=== PATIENT | male | born 1970 | race Caucasian/White ===

== ENCOUNTER 2019-04-21 17:42 | Emergency (ER) | payer OTHER ==
[~2019-04-21] VITALS: Ht 190.5 cm; Wt 133.4 kg
[2019-04-21] MEDS ORDERED: KETOROLAC 15 MG/ML VIAL. IV ONE (18:30)
[2019-04-21] MEDS ORDERED: FAMOTIDINE 20 MG/2 ML VIAL IVP ONE (18:30)
[2019-04-21] MEDS ORDERED: ASPIRIN 325 MG TABLET PO ONE (18:30)
[2019-04-21] MEDS ORDERED: IV NORMAL SALINE 1000ML BAG 1,000 ML IV ONE (18:30)
[2019-04-21 18:46] LABS: BASO % 0 % (0-3); EOS # 0.2 x10^3/uL (0.0-0.7); EOS % 2 % (0-3); HEMATOCRIT 45.5 % (39.0-53.0); LYMPH # 2.6 x10^3/uL (1.0-4.8); LYMPH % 31 % (24-48); MEAN CORPUSCULAR HEMOGLOBIN 32 pg (25-35); MEAN CORPUSCULAR HGB CONC 35 g/dL (31-37); MEAN CORPUSCULAR VOLUME 90 fL (79-100); MONO # 0.6 x10^3/uL (0.0-1.1); MONO % 7 % (0-9); NEUT % 60 % (31-73); PLATELET COUNT 226 x10^3/uL (140-400); RED BLOOD COUNT 5.04 x10^6/uL (4.30-5.70); RED CELL DISTRIBUTION WIDTH 12.6 % (11.5-14.5); WHITE BLOOD COUNT 8.4 x10^3/uL (4.0-11.0)
[2019-04-21 19:03] LABS: PARTIAL THROMBOPLASTIN TIME 27 SEC (24-38)
[2019-04-21 19:06] LABS: D-DIMER < 0.27 ug/mlFEU (0.00-0.50)
[2019-04-21 19:25] LABS: BILIRUBIN,URINE NEGATIVE (NEG); CLARITY,URINE CLEAR; COLOR,URINE YELLOW; NITRITE,URINE NEGATIVE (NEG); PH,URINE 7.5; PROTEIN,URINE NEGATIVE (NEG-TRACE); UROBILINOGEN,URINE 0.2 mg/dL (0.2 mg/dL)
[2019-04-21 19:29] LABS: ALBUMIN 3.8 g/dL (3.4-5.0); ALBUMIN/GLOBULIN RATIO 1.2 (1.0-1.7); CALCIUM 8.9 mg/dL (8.5-10.1); CREATININE 0.9 mg/dL (0.7-1.3); GFR 90.4; MAGNESIUM 2.1 mg/dL (1.8-2.4); POTASSIUM 4.2 mmol/L (3.5-5.1); TOTAL BILIRUBIN 0.4 mg/dL (0.2-1.0)
[2019-04-21 19:33] LABS: BACTERIA,URINE 0 /HPF (0-FEW); RBC,URINE 0 /HPF (0-2); SQUAMOUS EPITHELIAL CELL,UR FEW /LPF; WBC,URINE 0 /HPF (0-4)
[2019-04-21 19:45] VITALS: BP 150/89
--- NOTE | 2019-04-21 20:02 | RAD ---
Exam performed: Scrotal ultrasound. Indication: Left testicular pain Date of Service: 04/21/2019. Comparison: None available Technique: Real-time grayscale,color flow, duplex doppler and spectral analysis of the scrotal contents is performed and images are obtained. Findings: The right testicle measures 4.7 x 3.2 x 2.8 cm where as the left testicle measures 4.1 x 2.8 x 2.4 cm. No focal lesions are identified. There is bilateral symmetric vascularity. Bilateral epididymis appear normal. There is symmetric vascularity. Small right hydrocele hydroceles, no definite varicocele is identified. Scanning in the left groin in the area of concern demonstrates no findings with or without Valsalva or coughing Impression: 1. Essentially unremarkable scrotal ultrasound Electronically signed by: Kandis Frye MD (04/21/2019 7:59 PM) [facility]
--- NOTE | 2019-04-21 20:22 | RAD ---
Exam: Chest 2 views INDICATION: Chest pain TECHNIQUE: Frontal and lateral views the chest Comparisons: 01/06/2018 FINDINGS: The cardiomediastinal silhouette and pulmonary vessels are within normal limits. The lung and pleural spaces are clear. IMPRESSION: No acute cardiopulmonary process. Electronically signed by: Landry Jansen MD (04/21/2019 8:18 PM) [facility]
--- NOTE | 2019-04-21 20:42 | PHYS DOC ---
Past Medical History Past Medical History: No Pertinent History Past Surgical History: Other Additional Past Surgical Histo: Leg surgery Additional Information: Nonsmoker Alcohol Use: Occasionally Drug Use: None Adult General Chief Complaint Chief Complaint: CHEST PAIN HPI HPI 49-year-old male presents with report of chest discomfort that has been ongoing for a few days. Patient notes he had some increased swelling about his bilateral ankles on Tuesday which has since improved. Reports he started having this chest discomfort with some associated shortness of air. Denies diaphoresis. Denies nausea or vomiting. Denies calf tenderness. Denies history of PE/DVT. Patient wi thout cardiac risk factors. Denies trauma. Denies fever or chills. Denies cough. Review of Systems Review of Systems Constitutional: Denies fever or chills Eyes: Denies redness or eye pain HENT: Denies nasal congestion or sore throat Respiratory: Denies cough; reports shortness of breath Cardiovascular: Reports chest pain; denies palpitations GI: Denies abdominal pain, nausea, or vomiting : Denies dysuria or hematuria or penile discharge; reports left testicular pain Musculoskeletal: Denies back pain or joint pain Integument: Reports some scrotal rash but reports well controlled; denies other skin lesions Neurologic: Denies headache, focal weakness or sensory changes Complete systems were reviewed and found to be within normal limits, except as documented in this note. Current Medications Current Medications Current Medications Medications (Trade) Dose Ordered Sig/Monique Start Time Stop Time Status Last Admin Dose Admin Aspirin (Babak Aspirin) 325 mg 1X ONCE 04/21/19 18:30 04/21/19 18:31 DC 04/21/19 18:28 325 MG Famotidine (Pepcid Vial) 20 mg 1X ONCE 04/21/19 18:30 04/21/19 18:33 DC 04/21/19 18:39 20 MG Ketorolac Tromethamine (Toradol 15mg Vial) 15 mg 1X ONCE 04/21/19 18:30 04/21/19 18:33 DC 04/21/19 18:39 15 MG Sodium Chloride 1,000 ml @ 1,000 mls/hr 1X ONCE 04/21/19 18:30 04/21/19 19:29 DC 04/21/19 18:28 1,000 MLS/HR Allergies Allergies Allergies Coded Allergies Type Severity Reaction Last Updated Verified No Known Drug Allergies 04/21/19 No Physical Exam Physical Exam Constitutional: Well developed, well nourished, no acute distress, non-toxic appearance HENT: Normocephalic, atraumatic, oropharynx moist Eyes: Conjunctiva normal, no discharge Neck: Normal range of motion, no tenderness, supple Cardiovascular: Heart rate normal, regular rhythm Lungs & Thorax: Bilateral breath sounds clear to auscultation, no wheezing Abdomen: Soft, no tenderness : left testicular tenderness on palpation, no focal mass noted, scrotal erythema noted consistent for heat dermatitis Skin: Warm, dry, no erythema, no rash Back: No tenderness, no CVA tenderness Extremities: No tenderness, ROM intact, no edema Neurologic: Alert and oriented X 3, no focal deficits noted Psychologic: Affect anxious, judgement normal, mood normal Current Patient Data Vital Signs Vital Signs Date Time Temp Pulse Resp B/P (MAP) Pulse Ox O2 Delivery O2 Flow Rate FiO2 04/21/19 18:29 79 18 153/77 (102) 97 Room Air 04/21/19 18:19 98.1 98.1 Lab Values Laboratory Tests Test 04/21/19 18:05 04/21/19 19:10 04/21/19 20:10 White Blood Count 8.4 x10^3/uL (4.0-11.0) Red Blood Count 5.04 x10^6/uL (4.30-5.70) Hemoglobin 16.0 g/dL (13.0-17.5) Hematocrit 45.5 % (39.0-53.0) Mean Corpuscular Volume 90 fL (79-100) Mean Corpuscular Hemoglobin 32 pg (25-35) Mean Corpuscular Hemoglobin Concent 35 g/dL (31-37) Red Cell Distribution Width 12.6 % (11.5-14.5) Platelet Count 226 x10^3/uL (140-400) Neutrophils (%) (Auto) 60 % (31-73) Lymphocytes (%) (Auto) 31 % (24-48) Monocytes (%) (Auto) 7 % (0-9) Eosinophils (%) (Auto) 2 % (0-3) Basophils (%) (Auto) 0 % (0-3) Neutrophils # (Auto) 5.0 x10^3/uL (1.8-7.7) Lymphocytes # (Auto) 2.6 x10^3/uL (1.0-4.8) Monocytes # (Auto) 0.6 x10^3/uL (0.0-1.1) Eosinophils # (Auto) 0.2 x10^3/uL (0.0-0.7) Basophils # (Auto) 0.0 x10^3/uL (0.0-0.2) Prothrombin Time 12.0 SEC (11.7-14.0) Prothrombin Time INR 0.9 (0.8-1.1) PTT 27 SEC (24-38) D-Dimer (Yareli) < 0.27 ug/mlFEU Sodium Level 138 mmol/L (136-145) Potassium Level 4.2 mmol/L (3.5-5.1) Chloride Level 100 mmol/L (98-107) Carbon Dioxide Level 26 mmol/L (21-32) Anion Gap 12 (6-14) Blood Urea Nitrogen 16 mg/dL (8-26) Creatinine 0.9 mg/dL (0.7-1.3) Estimated GFR (Cockcroft-Gault) 90.4 BUN/Creatinine Ratio 18 (6-20) Glucose Level 123 mg/dL (70-99) H Calcium Level 8.9 mg/dL (8.5-10.1) Magnesium Level 2.1 mg/dL (1.8-2.4) Total Bilirubin 0.4 mg/dL (0.2-1.0) Aspartate Amino Transferase (AST) 22 U/L (15-37) Alanine Aminotransferase (ALT) 43 U/L (16-63) Alkaline Phosphatase 71 U/L (46-116) Creatine Kinase 146 U/L (39-308) Creatine Kinase MB (Mass) 2.0 ng/mL (0.0-3.6) Creatine Kinase MB Relative Index 1.4 % (0-4) Troponin I Quantitative < 0.017 ng/mL (0.000-0.055) < 0.017 ng/mL (0.000-0.055) LO-[id number]-Type Natriuretic Peptide 11 pg/mL (0-124) Total Protein 7.0 g/dL (6.4-8.2) Albumin 3.8 g/dL (3.4-5.0) Albumin/Globulin Ratio 1.2 (1.0-1.7) Lipase 269 U/L (73-393) Urine Collection Type Unknown Urine Color Yellow Urine Clarity Clear Urine pH 7.5 Urine Specific [place] 1.010 Urine Protein Negative mg/dL (NEG-TRACE) Urine Glucose (UA) Negative mg/dL (NEG) Urine Ketones (Stick) Negative mg/dL (NEG) Urine Blood Negative (NEG) Urine Nitrite Negative (NEG) Urine Bilirubin Negative (NEG) Urine Urobilinogen Dipstick 0.2 mg/dL (0.2 mg/dL) Urine Leukocyte Esterase Negative (NEG) Urine RBC 0 /HPF (0-2) Urine WBC 0 /HPF (0-4) Urine Squamous Epithelial Cells Few /LPF Urine Bacteria 0 /HPF (0-FEW) Laboratory Tests 04/21/19 18:05 Laboratory Tests 04/21/19 18:05 EKG EKG @1754 NSR at 83bpm, NO STEMI, slight ST slurring at I, avL and V2, RBBB, no prior EKG for comparison per [facility] Radiology/Procedures Radiology/Procedures PROCEDURE: CHEST PA & LATERAL Exam: Chest 2 views INDICATION: Chest pain TECHNIQUE: Frontal and lateral views the chest Comparisons: 01/06/2018 FINDINGS: The cardiomediastinal silhouette and pulmonary vessels are within normal limits. The lung and pleural spaces are clear. IMPRESSION: No acute cardiopulmonary process. Electronically signed by: Landry Jansen MD (04/21/2019 8:18 PM) [facility] PROCEDURE: TESTICULAR/SCROTUM Exam performed: Scrotal ultrasound. Indication: Left testicular pain Date of Service: 04/21/2019. Comparison: None available Technique: Real-time grayscale,color flow, duplex doppler and spectral analysis of the scrotal contents is performed and images are obtained. Findings: The right testicle measures 4.7 x 3.2 x 2.8 cm where as the left testicle measures 4.1 x 2.8 x 2.4 cm. No focal lesions are identified. There is bilateral symmetric vascularity. Bilateral epididymis appear normal. There is symmetric vascularity. Small right hydrocele hydroceles, no definite varicocele is identified. Scanning in the left groin in the area of concern demonstrates no findings with or without Valsalva or coughing Impression: 1. Essentially unremarkable scrotal ultrasound Electronically signed by: Kandis Frye MD (04/21/2019 7:59 PM) [facility] Course & Med Decision Making Course & Med Decision Making Pertinent Labs and Imaging studies reviewed. (See chart for details) Patient presents with report of chest pain which started a few days ago. Report s also with concern for left testicular pain which has been present for the last 4 years. Denies penile discharge. Left testicular tender to palpation without discreet mass. EKG with RBBB but without signs of STEMI. Labs obtained and posted to chart. Troponin x 2 negative. CXR stable. HEART score 2. Testicular ultrasound without acute process except for small hydrocele on right. Symptoms also likely exacerbated by anxiety. Patient requesting anxiety medications for home. Reports has been on Ativan 0.5mg tabs prior. Patient stable for discharge with outpatient follow-up with PCP/Urologist/It Service Technician. A PCP packet and referrals for urology and cardiology provided. Discussed findings and plan with patient, who acknowledges understanding and agreement. Dragon Disclaimer Dragon Disclaimer This electronic medical record was generated, in whole or in part, using a voice recognition dictation system. Departure Departure Impression: Primary Impression: Chest pain Additional Impressions: Testicular pain, left Hydrocele Anxiety Disposition: HOME, SELF-CARE Condition: STABLE Referrals: NO PCP (PCP) ROZINA DOTSON MD, PRASHANTH S MD Patient Instructions: Anxiety and Panic Attacks, [id number], Chest Pain (Nonspecific), [id number], Testicular Problems and Self-Exam Scripts Lorazepam (ATIVAN) 0.5 Mg Tablet 0.5 MG PO TID PRN for ANXIETY, #6 TAB Prov: BRADLY CHOI 04/21/19 The HEART Score for CP Pts HEART Score for Chest Pain: HEART Score for Chest Pain Response (Comments) Value History Slighlty/Non-Suspicious 0 ECG Nonspecific Repolarizatio 1 Age >45 - < 65 1 Risk Factors No Risk Factors 0 Troponin < Normal Limit 0 Total 2 Risk Factors: Risk Factors: DM, Current or recent (<one month) smoker, HTN, HLP, family history of CAD, obesity. Risk Scores: Score 0 - 3: 2.5% MACE over next 6 weeks - Discharge Home Score 4 - 6: 20.3% MACE over next 6 weeks - Admit for Clinical Observation Score 7 - 10: 72.7% MACE over next 6 weeks - Early Invasive Strategies Problem Qualifiers Primary Impression: Chest pain Chest pain type: unspecified Qualified Codes: R07.9 - Chest pain, unspecified Additional Impressions: Hydrocele Hydrocele type: unspecified Qualified Codes: N43.3 - Hydrocele, unspecified BRADLY CHOI DO Apr 21, 2019 20:42
[2019-04-21] MEDS ORDERED: LORA0.5T96 PO (20:52)
--- NOTE | 2019-04-23 06:41 | EKG ---
[facility] [address] [place] [address] Test Date: 2019-04-21 Test Time: 17:54:09 Pat Name: BRADLY DUARTE Department: Room: Gender: M [employer]: : 1970 Requested By: BRADLY CHOI Order Number: [id number] Reading MD: Measurements Intervals [place] Rate: 83 P: 42 UT: 152 QRS: 21 QRSD: 84 T: 10 QT: 370 QTc: 435 Interpretive Statements SINUS RHYTHM QRS(T) CONTOUR ABNORMALITY CONSIDER ANTEROLATERAL MYOCARDIAL DAMAGE POSSIBLY ABNORMAL ECG RI6.01 No previous ECG available for comparison
== END 2019-04-21 20:55 | disposition home or self-care (01) ==
LOC: ER 17:42
DX: R07.89 Other chest pain (principal); N43.3 Hydrocele, unspecified; F41.9 Anxiety disorder, unspecified; N50.812 Left testicular pain
CPT/HCPCS: 36415; 71046; 76870; 80053; 81001; 82553; 83690; 83735; 83880; 84484; 85025; 85379; 85610; 85730; 87491; 87591; 93005; 96374; 96375; 99285; J1885; J3490; J7030; 99283